=== PATIENT | female | born 1995 | race Caucasian/White ===

== ENCOUNTER 2022-07-17 16:06 | Emergency (ER) | payer OTHER ==
[~2022-07-17] VITALS: Ht 165.1 cm; Wt 72.1 kg
[2022-07-17 16:11] VITALS: BP 124/77
[2022-07-17] MEDS ORDERED: IBUP-2213 PO (18:33)
[2022-07-17 18:45] VITALS: BP 124/77
--- NOTE | 2022-07-17 18:45 | NUR ---
PT PROVIDED A NUMBER FOR CYTOGENETIC TECHNICIAN [id number], STATES SHE WILL CYTOGENETIC TECHNICIAN PT IN 1 HR, PT MADE AWARE.
== END 2022-07-17 18:45 | disposition home or self-care (01) ==
LOC: MED 16:06
DX: M94.0 Chondrocostal junction syndrome [Tietze] (principal); R07.89 Other chest pain; Z79.899 Other long term (current) drug therapy
CPT/HCPCS: 93005; 99283

== ENCOUNTER 2023-02-24 14:39 | Emergency (ER) | payer OTHER ==
[~2023-02-24] VITALS: Ht 167.6 cm; Wt 72.6 kg
[~2023-02-24 14:39] MED LIST: IBUP-2213 PO
[2023-02-24 15:16] VITALS: BP 111/68; PULSE 80; RESP 18; TEMP 97; O2SAT 98
[2023-02-24] MEDS ORDERED: IBUP-2213 PO (17:34)
[2023-02-24 17:53] VITALS: BP 112/70; PULSE 78; RESP 18; TEMP 98; O2SAT 99
== END 2023-02-24 17:53 | disposition home or self-care (01) ==
LOC: MED 14:39
DX: S99.922A Unspecified injury of left foot, initial encounter (principal); S99.912A Unspecified injury of left ankle, initial encounter; Z79.1 Long term (current) use of non-steroidal anti-inflammatories (NSAID); X58.XXXA Exposure to other specified factors, initial encounter; Y92.89 Other specified places as the place of occurrence of the external cause; Y93.89 Activity, other specified; Y99.8 Other external cause status
CPT/HCPCS: 29515; 73610; 73630; 99284